=== PATIENT | female | born 1960 | race Caucasian/White ===

== ENCOUNTER → 2017-11-02 13:00 | Outpatient (CLI) | payer OTHER, SELFPAY | PROVIDERS: Family Provider Family Medicine; PCP Family Medicine | DX: Z23 Encounter for immunization (principal) | CPT/HCPCS: 90471; 90686 ==

== ENCOUNTER → 2018-03-19 11:41 | Outpatient (CLI) | payer OTHER, SELFPAY ==
--- NOTE | 2018-03-19 | DI.MG.S_ITS ---
BILATERAL DIGITAL SCREENING MAMMOGRAM 3D/2D WITH CAD: 03/19/2018 CLINICAL: Routine screening. Family history of breast cancer. Comparison is made to exams dated: 06/05/2017 mammogram, 11/28/2016 mammogram, 11/21/2016 mammogram, and 11/16/2015 mammogram - [facility]. The tissue of both breasts is heterogeneously dense. This may lower the sensitivity of mammography. Current study was also evaluated with a Computer Aided Detection (CAD) system. No significant masses, calcifications, or other findings are seen in either breast. There has been no significant interval change. IMPRESSION: NEGATIVE There is no mammographic evidence of malignancy. A 1 year screening mammogram is recommended. This exam was interpreted at Station ID: [id number]. NOTE: For mammograms, a report in lay terms will be sent to the patient. Approximately 15% of breast malignancies will not be visualized mammographically. In the management of a palpable breast mass, a negative mammogram must not discourage biopsy of a clinically suspicious lesion. Electronically Signed By: Shola call/yadi:03/19/2018 13:07:26 letter sent: Normal Exam ACR BI-RADS Category 1: Negative 3341F
== END ==
PROVIDERS: Family Provider Family Medicine; PCP Family Medicine; Visit Provider Family Medicine
DX: Z12.31 Encounter for screening mammogram for malignant neoplasm of breast (principal); Z80.3 Family history of malignant neoplasm of breast
CPT/HCPCS: 77063; 77067

== ENCOUNTER → 2018-09-10 09:57 | Outpatient (CLI) | payer OTHER, SELFPAY ==
[2018-09-10 10:48] LABS: Add Manual Diff / Slide Review NO; Basophils Absolute Auto 100 /uL (0-100); Basophils Percent Auto 1.3 % (0-2); Eosinophils Absolute Auto 200 /uL (0-450); Eosinophils Percent Auto 3.2 % (2-4); Hematocrit 39.4 % (36-46); Hemoglobin 13.3 g/dL (12.0-16.0); Lymphocytes Absolute Auto 1800 /uL (1100-4500); Lymphocytes Percent Auto 34.9 % (25-40); Mean Corpuscular HGB Conc 33.8 % (30-36); Mean Corpuscular Hemoglobin 32.3 PG (26-34); Mean Corpuscular Volume 95.6 fL (80-100); Monocytes Absolute Auto 400 /uL (0-900); Monocytes Percent Auto 8.1 % (3-14); Neutrophils Absolute Auto 2700 /uL (1500-7000); Neutrophils Percent Auto 52.5 % (50-75); Platelet Count 303 X10^3/uL (150-400); Red Blood Cell Count 4.12 X10^6/uL (4.0-5.2); Red Cell Distribution Width 14.3 % (11.6-14.8); White Blood Cell Count 5.2 X10^3/uL (4.5-11.0)
[2018-09-10 11:46] LABS: Alanine Aminotransferase 20 IU/L (9-52); Albumin 4.5 g/dL (3.5-5.0); Albumin Globulin Ratio 1.7 (1.0-2.8); Alkaline Phosphatase 91 U/L (38-126); Aspartate Aminotransferase 40 IU/L (14-36); BUN Creatinine Ratio 18.6 (6-22); Bilirubin Total 0.6 mg/dL (0.2-1.3); Blood Urea Nitrogen 13 mg/dL (7-17); Calcium 9.8 mg/dL (8.4-10.2); Carbon Dioxide 30 mmol/L (22-32); Chloride 104 mmol/L (98-107); Cholesterol 216 mg/dL (140-199); Estimated Glomerular Filt Rate > 60.0 mL/min (>60); Globulin 2.7 g/dL (1.7-4.1); Glucose 89 mg/dL (70-100); HDL Cholesterol 79 mg/dL (40-60); HEMOLYSIS < 15 (0-50); Potassium 4.5 mmol/L (3.4-5.1); Sodium 142 mmol/L (137-145); Total Protein 7.2 g/dL (6.3-8.2)
[2018-09-10 11:47] LABS: LDL Cholesterol Calculated 120 mg/dL (<100); Triglycerides 85 mg/dL (35-150)
[2018-09-10 12:11] LABS: TSH w/ Reflex to FT4 1.92 uIU/mL (0.47-4.68)
== END ==
PROVIDERS: PCP Family Medicine; Visit Provider Family Medicine
DX: R53.83 Other fatigue (principal); E78.5 Hyperlipidemia, unspecified
CPT/HCPCS: 36415; 80053; 80061; 84443; 85025

== ENCOUNTER → 2018-11-12 11:02 | Outpatient (CLI) | payer OTHER, SELFPAY | PROVIDERS: PCP Family Medicine | DX: Z23 Encounter for immunization (principal) | CPT/HCPCS: 90471; 90686 ==

== ENCOUNTER → 2019-04-08 16:15 | Outpatient (CLI) | payer OTHER, SELFPAY ==
--- NOTE | 2019-04-08 | DI.MG.S_ITS ---
BILATERAL DIGITAL SCREENING MAMMOGRAM 3D/2D WITH CAD: 04/08/2019 CLINICAL: Routine screening. Family history of breast cancer. Comparison is made to exams dated: 03/19/2018 mammogram, 11/21/2016 mammogram, and 11/16/2015 mammogram - [facility]. The tissue of both breasts is heterogeneously dense. This may lower the sensitivity of mammography. Current study was also evaluated with a Computer Aided Detection (CAD) system. No significant masses, calcifications, or other findings are seen in either breast. There has been no significant interval change. IMPRESSION: NEGATIVE There is no mammographic evidence of malignancy. A 1 year screening mammogram is recommended. This exam was interpreted at Station ID: [id number]. NOTE: For mammograms, a report in lay terms will be sent to the patient. Approximately 15% of breast malignancies will not be visualized mammographically. In the management of a palpable breast mass, a negative mammogram must not discourage biopsy of a clinically suspicious lesion. Electronically Signed By: Lesli rivero/yadi:04/09/2019 08:52:07 letter sent: Normal Exam ACR BI-RADS Category 1: Negative 3341F
== END ==
PROVIDERS: PCP Family Medicine; Referring Provider Family Medicine; Visit Provider Family Medicine
DX: Z12.31 Encounter for screening mammogram for malignant neoplasm of breast (principal); Z80.3 Family history of malignant neoplasm of breast
CPT/HCPCS: 77063; 77067

== ENCOUNTER → 2019-09-11 12:48 | Outpatient (CLI) | payer OTHER, SELFPAY ==
--- NOTE | 2019-09-11 | DI.RAD.S_ITS ---
PROCEDURE: XR LUMBAR SPINE 2-3V INDICATIONS: LOW BACK AND HIP PAIN TECHNIQUE: 2 views of the lumbar spine were acquired. COMPARISON: None. FINDINGS: Bones: No fracture or focal osseous destruction. Mild dextrocurvature. Multilevel degenerative endplate sclerosis and spurring. Diffuse facet arthropathy. Diffuse mild narrowing of the lumbar disc spaces. Soft tissues: Overlying bowel gas pattern is normal. No suspicious soft tissue calcifications. IMPRESSION: Mild diffuse spondylosis and facet arthropathy. Mild dextrocurvature Dictated by: Yannick Dwyer M.D. on 09/11/2019 at 13:50 Approved by: Yannick Dwyer M.D. on 09/11/2019 at 13:59
== END ==
PROVIDERS: PCP Family Medicine; Referring Provider Chiropractor; Visit Provider Chiropractor
DX: M54.5 Low back pain (principal); M47.816 Spondylosis without myelopathy or radiculopathy, lumbar region; M25.559 Pain in unspecified hip
CPT/HCPCS: 72100

== ENCOUNTER → 2019-10-14 11:44 | Outpatient (CLI) | payer OTHER, SELFPAY ==
[2019-10-15 09:57] LABS: COVID19 Sendout Not Detected (Not Detect)
== END ==
PROVIDERS: PCP Family Medicine; Visit Provider Nurse Practitioner
DX: Z20.828 Contact with and (suspected) exposure to other viral communicable diseases (principal)
CPT/HCPCS: 87635

== ENCOUNTER → 2019-11-14 | Outpatient (CLI) | payer OTHER, SELFPAY | PROVIDERS: PCP Family Medicine; Referring Provider Internal Medicine; Visit Provider Internal Medicine | DX: Z23 Encounter for immunization (principal) | CPT/HCPCS: 90471; 90686 ==

== ENCOUNTER → 2019-11-22 13:29 | Outpatient (CLI) | payer OTHER, SELFPAY ==
[2019-11-24 07:55] LABS: COVID19 Sendout Not Detected (Not Detect)
== END ==
PROVIDERS: PCP Family Medicine; Visit Provider Physician Assistant
DX: Z01.812 Encounter for preprocedural laboratory examination (principal)
CPT/HCPCS: 87635

== ENCOUNTER 2019-11-25 06:32 | Day surgery (SDC) | payer OTHER, SELFPAY ==
[2019-11-25 07:01] VITALS: BP 117/73; PULSE 74; RESP 16; TEMP 36.7; O2SAT 100; BMI 24.4
[2019-11-25] MEDS: LACTATED RINGERS 1,000 ML 42 ML IV (07:14)
--- NOTE | 2019-11-25 07:55 | PM.HP.1 ---
History of Present Illness History of Present Illness Date Patient Seen: 11/25/19 Time Patient Seen: 07:55 Chief complaint: SCREENING COLONOSCOPY Narrative: The patient is a woman here for a screening colonoscopy. Last exam 10 years ago. No family history of polyps or colon cancer. No personal history of polyps Patient History Surgical History Status post hysteroscopy (03/29/07) Status post rotator cuff repair (05/29/12) Family & Social History Family History Brother Age: 54 Obesity CAD (coronary artery disease) Brother Age: 62 History of stroke Obesity Father Age: 88 Atrial fibrillation, unspecified type Grandfather Heart disease Mother Age: 86 Alzheimers disease Sister Age: 64 Malignant neoplasm of female breast, unspecified laterality, unspecified site of breast Social History: household members spouse Tobacco & Substance use: Smoking Status Never smoker alcohol intake current alcohol intake frequency a few times a month Substance Use Type does not use Meds Home Medications and Allergies Home Medications Medication Instructions Recorded Confirmed Type estradiol 1 vaginalrin VAG [id number] #1 each 10/28/18 11/25/19 Rx CMP Progesterone 100mg/mL Cream See Rx Instructions .ROUTE 09/05/19 11/25/19 Rx .COMPLEX #3 ml Allergies Allergy/AdvReac Type Severity Reaction Status Date / Time No Known Drug Allergies Allergy Verified 11/25/19 06:59 Review of Systems Review of Systems ROS: Yes All systems reviewed with the patient and are negative except as otherwise documented Exam Vital Signs (past 8 hours): - 11/25/19 07:01 Temperature 98.1 F Pulse Rate 74 Respiratory Rate 16 Blood Pressure 117/73 Pulse Oximetry 100 Oxygen Delivery Method Room Air Oxygen Flow Rate 0 Narrative Exam Narrative: Pleasant cooperative patient no apparent distress. Lungs are clear to auscultation. No rales or rhonchi. Heart regular rate and rhythm no murmur gallop. Abdomen is soft nontender without mass. No obvious hernias. Patient is alert and oriented x3. Assessment & Plan Assessment & Plan narrative: The patient for a screening colonoscopy. I have discussed the procedure with them. Risks of bleeding, perforation which would necessitate major operation, failure to find remove all lesions, the potential tattoo were all discussed. All questions were answered. They wished to proceed.
--- NOTE | 2019-11-25 07:57 | PM.PREOP ---
Pre-operative Note COVID-19 COVID-19 status: Negative Result date/Date tested (Pos, Neg/Pending): 11/22/19 Interval Note History & Physical reviewed/Exam performed by Physician: Yes Changes to H&P: No ASA Class (for procedural sedation): I
[2019-11-25] MEDS: fentaNYL 250 MCG/5 ML INJ IV (08:14)
[2019-11-25] MEDS: MIDAZOLAM 5 MG/5 ML VIAL IV (08:14)
--- NOTE | 2019-11-25 08:28 | PM.OP.ENDO ---
Operative Date/Time/Diagnoses Date of procedure: 11/25/19 Time of procedure: 08:29 Pre-op diagnosis: Screening exam. Last exam 10 years ago. Post-op diagnosis: same Procedure & Clinicians Study performed: Colonoscopy Same procedure as scheduled: Yes Indications: Screening Surgeon: Saul Doyle Procedure Notes SCOAP/Timeout: Perform Procedure in detail: The patient was placed in the left lateral decubitus position and underwent IV sedation directed by the surgeon consisting of fentanyl and Versed. Digital exam was remarkable for large external hemorrhoid tags. The scope was inserted and advanced through the rectum into the sigmoid, descending, transverse, and ascending colon. No lesions were seen. Was quite a bit of tortuosity and I had to apply pressure and inserted a stiffener in order to reach the cecum. The cecum was reached identified by the ileocecal valve and the appendiceal opening. The ileocecal valve was successfully cannulated. The terminal ileum was normal in appearance. The scope was gradually brought out. No Polyps were found. The scope ultimately was retroflexed in the rectum. The appearance was remarkable for scarring on hemorrhoids but no active disease.. The scope was removed and the patient tolerated the procedure well. The prep was very good. Scope withdrawal time: 6 minutes Sedation minutes: 25 Specimen(s): none sent Complications: none Post-procedure Recommendations: Colonscopy in 10 years Follow up: as needed Disposition: PACU
[2019-11-25 08:30] VITALS: BP 101/60; PULSE 59; RESP 12; TEMP 36.9; O2SAT 96
[2019-11-25 08:35] VITALS: BP 95/61; PULSE 60; RESP 14; O2SAT 96
[2019-11-25 08:40] VITALS: BP 98/61; PULSE 59; RESP 14; O2SAT 97
--- NOTE | 2019-11-25 08:43 | SUR.PHASEI ---
pt arrived laying on left side. No distress noted. no complaints voiced.
[2019-11-25 08:48] VITALS: BP 102/66; PULSE 82; RESP 12; TEMP 36.3; O2SAT 99
[2019-11-25 08:58] VITALS: BP 101/70; PULSE 62; RESP 16; TEMP 36.6; O2SAT 99
--- NOTE | 2019-11-25 09:17 | SUR.PHASEII ---
0900-Pt wanting to go home, up and ambulating gait steady. iv dcd site clear and pt getting dressed now at bs.
--- NOTE | 2019-11-25 09:17 | SUR.PHASEII ---
0910-Pt dcd via wc in stable condition after all dcinstructions given.
== END 2019-11-25 09:10 | disposition home or self-care (01) ==
PROVIDERS: PCP Family Medicine; Referring Provider Family Medicine; Visit Provider Specialist
PROC: 0DJD8ZZ Inspection of Lower Intestinal Tract, Via Natural or Artificial Opening Endoscopic (ICD-10-PCS; CPT 45378; principal; 2019-11-25 07:45)
DX: Z12.11 Encounter for screening for malignant neoplasm of colon (principal)
CPT/HCPCS: 45378; 99152; J2250; J3010

== ENCOUNTER → 2020-02-18 12:47 | Outpatient (CLI) | payer OTHER, SELFPAY ==
[2020-02-18] MEDS: COVID-19 VACC(MODERNA-1)/PF 100 MCG/0.5 ML VIAL IM (12:51)
== END ==
PROVIDERS: PCP Family Medicine; Visit Provider Internal Medicine
DX: Z23 Encounter for immunization (principal)
CPT/HCPCS: 0011A; 91301

== ENCOUNTER → 2020-03-16 12:45 | Outpatient (CLI) | payer OTHER, SELFPAY ==
[2020-03-16] MEDS: COVID-19 VACC #2, MRNA(MOD) 100 MCG/0.5 ML VIAL IM (12:50)
== END ==
PROVIDERS: PCP Family Medicine; Visit Provider Internal Medicine
DX: Z23 Encounter for immunization (principal)
CPT/HCPCS: 0012A; 91301

== ENCOUNTER → 2020-05-24 08:05 | Outpatient (CLI) | payer OTHER, SELFPAY ==
--- NOTE | 2020-05-24 | DI.MG.S_ITS ---
BILATERAL DIGITAL SCREENING MAMMOGRAM 3D/2D WITH CAD: 05/24/2020 CLINICAL: Routine screening. Family history of breast cancer. Comparison is made to exams dated: 04/08/2019 mammogram, 03/19/2018 mammogram, and 11/21/2016 mammogram - [facility]. There are scattered fibroglandular elements in both breasts. Current study was also evaluated with a Computer Aided Detection (CAD) system. No significant masses, calcifications, or other findings are seen in either breast. There has been no significant interval change. IMPRESSION: NEGATIVE There is no mammographic evidence of malignancy. A 1 year screening mammogram is recommended. This exam was interpreted at Station ID: [id number]. NOTE: For mammograms, a report in lay terms will be sent to the patient. Approximately 15% of breast malignancies will not be visualized mammographically. In the management of a palpable breast mass, a negative mammogram must not discourage biopsy of a clinically suspicious lesion. Electronically Signed By: Raina gerardo/yadi:05/24/2020 10:04:57 letter sent: Normal Exam ACR BI-RADS Category 1: Negative 3341F
== END ==
PROVIDERS: PCP Family Medicine; Referring Provider Family Medicine; Visit Provider Family Medicine
DX: Z12.31 Encounter for screening mammogram for malignant neoplasm of breast (principal); Z80.3 Family history of malignant neoplasm of breast
CPT/HCPCS: 77063; 77067

== ENCOUNTER → 2020-09-23 06:59 | Outpatient (CLI) | payer OTHER, SELFPAY ==
[2020-09-23 07:57] LABS: Add Manual Diff / Slide Review NO; Basophils Absolute Auto 0 /uL (0-100); Basophils Percent Auto 0.6 % (0-2); Eosinophils Absolute Auto 200 /uL (0-450); Eosinophils Percent Auto 2.7 % (2-4); Hematocrit 37.8 % (36-46); Hemoglobin 12.4 g/dL (12.0-16.0); Lymphocytes Absolute Auto 1200 /uL (1100-4500); Lymphocytes Percent Auto 17.4 % (25-40); Mean Corpuscular HGB Conc 32.9 % (30-36); Mean Corpuscular Hemoglobin 31.8 PG (26-34); Mean Corpuscular Volume 96.6 fL (80-100); Monocytes Absolute Auto 500 /uL (0-900); Monocytes Percent Auto 7.2 % (3-14); Neutrophils Absolute Auto 5000 /uL (1500-7000); Neutrophils Percent Auto 72.1 % (50-75); Platelet Count 275 X10^3/uL (150-400); Red Blood Cell Count 3.91 X10^6/uL (4.0-5.2); Red Cell Distribution Width 13.7 % (11.6-14.8); White Blood Cell Count 6.9 X10^3/uL (4.5-11.0)
[2020-09-23 08:09] LABS: Alanine Aminotransferase 16 IU/L (<35); Albumin 4.1 g/dL (3.5-5.0); Albumin Globulin Ratio 1.6 (1.0-2.8); Alkaline Phosphatase 75 U/L (38-126); Aspartate Aminotransferase 36 IU/L (14-36); BUN Creatinine Ratio 20.5 (6-22); Bilirubin Total 0.4 mg/dL (0.2-1.3); Blood Urea Nitrogen 16 mg/dL (7-17); Calcium 9.6 mg/dL (8.4-10.2); Carbon Dioxide 29 mmol/L (22-32); Chloride 106 mmol/L (98-107); Cholesterol 226 mg/dL (140-199); Estimated Glomerular Filt Rate > 60.0 mL/min (>60); Globulin 2.5 g/dL (1.7-4.1); Glucose 86 mg/dL (80-110); HDL Cholesterol 67 mg/dL (40-60); HEMOLYSIS < 15 (0-50); LDL Cholesterol Calculated 141 mg/dL (<100); Potassium 4.2 mmol/L (3.4-5.1); Sodium 138 mmol/L (137-145); Total Protein 6.6 g/dL (6.3-8.2); Triglycerides 89 mg/dL (35-150)
[2020-09-23 08:24] LABS: Vitamin D 25 Hydroxy (D3) 34.7 ng/mL (30.0-100.0)
[2020-09-23 08:45] LABS: TSH w/ Reflex to FT4 2.41 uIU/mL (0.47-4.68)
[2020-09-23 11:24] LABS: HIV 1 & 2 Ab/Ag 4th Gen Combo NEGATIVE (NEGATIVE); Hep C Virus Ab w/Reflex Quant NEGATIVE s/c (NEGATIVE)
== END ==
PROVIDERS: PCP Family Medicine; Referring Provider Family Medicine; Visit Provider Family Medicine
DX: E78.5 Hyperlipidemia, unspecified (principal); L65.9 Nonscarring hair loss, unspecified; R53.83 Other fatigue; Z13.1 Encounter for screening for diabetes mellitus; Z78.0 Asymptomatic menopausal state
CPT/HCPCS: 36415; 80053; 80061; 82306; 84443; 85025; 86803; 87389

== ENCOUNTER → 2020-12-02 19:38 | Outpatient (CLI) | payer OTHER, SELFPAY | PROVIDERS: PCP Family Medicine; Referring Provider Internal Medicine; Visit Provider Internal Medicine | DX: Z23 Encounter for immunization (principal) | CPT/HCPCS: 90471; 90686 ==

== ENCOUNTER → 2020-12-31 11:48 | Outpatient (CLI) | payer OTHER, SELFPAY ==
[2020-12-31] MEDS: COVID-19 VACC #3, MRNA(MOD) 50 MCG/0.25 ML VIAL IM (11:51)
== END ==
PROVIDERS: PCP Family Medicine; Visit Provider Internal Medicine
DX: Z23 Encounter for immunization (principal)
CPT/HCPCS: 0013A; 91301

== ENCOUNTER 2021-01-14 12:13 | Emergency (ER) | payer OTHER, SELFPAY ==
[2021-01-14 12:45] VITALS: BP 135/74; PULSE 73; RESP 18; TEMP 37.1; O2SAT 99
--- NOTE | 2021-01-14 12:47 | ED.GENADULT ---
HPI - General Adult <Karl Holman PA-C - Last Filed: 01/14/21 20:04> General Chief complaint: Skin/Abscess/Foreign Body Stated complaint: Stabbed Lt Pointer Finger With Needle Time Seen by Provider: 01/14/21 12:42 History of Present Illness HPI narrative: Patient is a 60-year-old female presenting emergency department today for an evaluation a needlestick to her left 2nd finger. Patient states that she was assisting in his surgery today at approximately 12:15 p.m. when the injury occurred. Patient states that she does not know the specific medical history of the patient that she was operating on. She denies symptoms associated with the injury, including fever, chills, chest pain, shortness of breath, nausea, vomiting, diarrhea, abdominal pain, dysuria, or numbness and tingling in the bilateral upper extremities. No other concerns voiced at this time. Patient is unsure if nurse manager clinical applications has been notified of the exposure. Related Data Previous Rx's Medication Instructions Recorded CMP Progesterone 100mg/mL Cream See Rx Instructions .ROUTE 10/27/20 .COMPLEX #3 ml CMP Biest Cream 0.125& 0.8 ml .ROUTE DAILY #1 tube 11/23/20 Allergies Allergy/AdvReac Type Severity Reaction Status Date / Time No Known Drug Allergies Allergy Verified 01/14/21 12:51 Review of Systems <Karl Holman PA-C - Last Filed: 01/14/21 20:04> Constitutional Constitutional: Denies chills, Denies fatigue, Denies fever(s), Denies frequent falls, Denies lethargy and Denies weakness Eyes Eyes: Denies loss of vision ENT Ears, Nose, Mouth, and Throat: Denies dizziness Cardiovascular Cardiovascular: Denies chest pain, Denies irregular heart rhythm, Denies lightheadedness, Denies palpitations, Denies dyspnea, Denies dyspnea on exertion and Denies orthopnea Respiratory Respiratory: Denies cough, Denies dyspnea, Denies dyspnea on exertion and Denies wheezing Gastrointestinal Gastrointestinal: Denies abdominal pain, Denies change in bowel habits, Denies diarrhea, Denies nausea and Denies vomiting Genitourinary Genitourinary: Denies hematuria, Denies flank pain, Denies urinary incontinence and Denies urinary urgency Musculoskeletal Musculoskeletal: Denies numbness and Denies tingling Integumentary/Breasts Skin/Breast: Denies pruritus, Denies erythema, Denies rash and Reports wounds (Needle puncture wound to left 2nd finger) Neurologic Neurologic: Denies behavioral changes, Denies confusion, Denies dizziness, Denies frequent falls, Denies loss of vision, Denies numbness, Denies tingling and Denies weakness Psychiatric Psychiatric: Denies behavioral changes and Denies confusion Endocrine Endocrine: Denies fatigue and Denies palpitations Allergic/Immunologic Allergic/Immunologic: Denies wheezing Patient History <Karl Holman PA-C - Last Filed: 01/14/21 20:04> Surgical History Status post hysteroscopy (03/29/07) Status post rotator cuff repair (05/29/12) Family History Brother Age: 55 Obesity CAD (coronary artery disease) Brother Age: 63 History of stroke Obesity Father Age: 89 Atrial fibrillation, unspecified type Grandfather Heart disease Mother Age: 87 Alzheimers disease Sister Age: 65 Malignant neoplasm of female breast, unspecified laterality, unspecified site of breast Social History household members: spouse Smoking Status: Never smoker alcohol intake: current Smoking Status: Never smoker alcohol intake frequency: a few times a month Substance Use Type: does not use Exam <Karl Holman PA-C - Last Filed: 01/14/21 20:04> Narrative Exam Narrative: GENERAL: 60 year old patient appears stated age. Well-developed patient, in no acute distress. HEAD: Atraumatic. Normocephalic. EYES: Pupils equal round and reactive. Extraocular motions intact. No scleral icterus. No injection or drainage. ENT: Nose without bleeding, purulent drainage. Throat without erythema, tonsillar hypertrophy or exudate. Airway patent. NECK: Trachea midline. Non tender CARDIOVASCULAR: Regular rate and rhythm without murmurs, gallops, or rubs. RESPIRATORY: Clear to auscultation. Breath sounds equal bilaterally. No wheezes, rales, or rhonchi. GASTROINTESTINAL: Abdomen soft, non-tender, nondistended. EXTREMITIES: No edema or joint tenderness. BACK: Nontender without deformity or crepitance. No flank tenderness. NEURO: AOx3. SKIN: No rash or erythema of visible areas. Small puncture wound noted at the finger pad the left 2nd finger. No surrounding erythema, swelling, warmth, or induration. Initial Vital Signs Initial Vital Signs: Vital Signs Temperature 98.8 F 01/14/21 12:45 Pulse Rate 73 01/14/21 12:45 Respiratory Rate 18 01/14/21 12:45 Blood Pressure 135/74 01/14/21 12:45 Pulse Oximetry 99 01/14/21 12:45 <Adele Morris DO - Last Filed: 01/15/21 07:06> Initial Vital Signs Initial Vital Signs: Vital Signs Temperature 98.8 F 01/14/21 12:45 Pulse Rate 73 01/14/21 12:45 Respiratory Rate 18 01/14/21 12:45 Blood Pressure 135/74 01/14/21 12:45 Pulse Oximetry 99 01/14/21 12:45 Course <Karl Holman PA-C - Last Filed: 01/14/21 20:04> Course Course Narrative: Exposure panel ordered. Vital Signs Vital signs: Vital Signs - 8 hr 01/14/21 12:45 Temperature 98.8 F Pulse Rate 73 Respiratory Rate 18 Blood Pressure 135/74 Pulse Oximetry 99 <Adele Morris DO - Last Filed: 01/15/21 07:06> Vital Signs Vital signs: Vital Signs - 8 hr 01/14/21 12:45 Temperature 98.8 F Pulse Rate 73 Respiratory Rate 18 Blood Pressure 135/74 Pulse Oximetry 99 Medical Decision Making <Karl Holman PA-C - Last Filed: 01/14/21 20:04> Lab Data Labs: Lab Results 01/14/21 01/14/21 Range/Units 12:52 12:52 ALT 18 (<35) IU/L Hep Bs Antigen Negative (NEGATIVE) s/c Hepatitis C Antibody Negative (NEGATIVE) s/c HIV 1&2 Ab/P24 Ag 4thGn Negative (NEGATIVE) MDM Narrative Medical decision making narrative: To consider blood borne illness versus puncture wound. Overall physical examination and history are reassuring. Discussed with patient the plan to notify nurse manager clinical applications of the incident and inform the patient that she will be informed of the results of the exposure panel once that have resulted. Patient understands plan and feels comfortable being discharged. Strict return precautions discussed prior to discharge. <Adele Morris DO - Last Filed: 01/15/21 07:06> Lab Data Labs: Lab Results 01/14/21 01/14/21 Range/Units 12:52 12:52 ALT 18 (<35) IU/L Hep Bs Antigen Negative (NEGATIVE) s/c Hepatitis C Antibody Negative (NEGATIVE) s/c HIV 1&2 Ab/P24 Ag 4thGn Negative (NEGATIVE) Discharge Plan Departure Patient Disposition: Home Clinical Impression: Puncture wound, Exposure to body fluid Activity Restrictions/Additional Instructions: *You have been diagnosed with left finger puncture wound *What to do: *Please continue to take your regular medications as directed. [ ] New medication prescriptions sent to your pharmacy: [ ] [ ] New medication written as a paper prescription [X] No new medications given *Please follow up with your primary care provider in 2-3 days, call for an appointment. Let them know you were seen in the Emergency Department and that we ask that you be seen in follow up. We will electronically transmit a record of today's note if your PCP is in our system *If you do not have a primary care provider please contact the [facility] Resource line at [phone]. They will ask some questions about your medical history and help get you set up with a doctor in the community. *Return to Emergency Department if you should have any new, worsening or concerning symptoms, such as fever greater than 101 F, shaking chills, worsening pain, persistent vomiting or other bothersome symptoms. Prescriptions: No Action CMP Progesterone 100mg/mL Cream See Rx Instructions .ROUTE .COMPLEX Qty: 3 11RF Rx Instructions: Apply 0.2mL once daily at bedtime to rotating sites. 3mL syringe/purple tip CMP Biest Cream 0.125& 0.8 ml .Route DAILY Qty: 1 3RF Rx Instructions: 0.8 mL daily; pply 0.8mL once Daily Referrals: Nancy Marsh DO [Primary Care Provider] - <Adele Morris DO - Last Filed: 01/15/21 07:06> Cosign ED Attending Reginoature Attestation: I was immediately available in the department for consultation. Documentation has been reviewed. I agree with assessment and plan.
[2021-01-14 13:14] LABS: Alanine Aminotransferase 18 IU/L (<35)
[2021-01-14 14:05] LABS: Hepatitis B Surface Antigen NEGATIVE s/c (NEGATIVE)
[2021-01-14 14:25] LABS: HIV 1 & 2 Ab/Ag 4th Gen Combo NEGATIVE (NEGATIVE); Hep C Virus Ab w/Reflex Quant NEGATIVE s/c (NEGATIVE)
[2021-01-15 07:14] LABS: Hepatitis B Surf Ab Qualitativ Reactive (.)
== END 2021-01-14 13:02 | disposition home or self-care (01) ==
PROVIDERS: Emergency Medicine; Emergency Provider Physician Assistant; PCP Family Medicine
DX: S61.231A Puncture wound without foreign body of left index finger without damage to nail, initial encounter (principal); Z77.21 Contact with and (suspected) exposure to potentially hazardous body fluids; W46.1XXA Contact with contaminated hypodermic needle, initial encounter; Y92.234 Operating room of hospital as the place of occurrence of the external cause; Y99.0 Civilian activity done for income or pay
CPT/HCPCS: 36415; 99281; 99283

== ENCOUNTER → 2021-06-07 14:55 | Outpatient (CLI) | payer OTHER, SELFPAY ==
--- NOTE | 2021-06-07 14:56 | DI.MG.S_ITS ---
BILATERAL DIGITAL SCREENING MAMMOGRAM 3D/2D WITH CAD: 06/07/2021 CLINICAL: Routine screening. Family history of breast cancer. Comparison is made to exams dated: 05/24/2020 mammogram, 04/08/2019 mammogram, and 03/19/2018 mammogram - [facility]. There are scattered fibroglandular elements in both breasts. Current study was also evaluated with a Computer Aided Detection (CAD) system. No significant masses, calcifications, or other findings are seen in either breast. There has been no significant interval change. IMPRESSION: NEGATIVE There is no mammographic evidence of malignancy. A 1 year screening mammogram is recommended. This exam was interpreted at Station ID: [id number]. NOTE: For mammograms, a report in lay terms will be sent to the patient. Approximately 15% of breast malignancies will not be visualized mammographically. In the management of a palpable breast mass, a negative mammogram must not discourage biopsy of a clinically suspicious lesion. Electronically Signed By: Lesli rivero/yadi:06/07/2021 17:22:29 letter sent: Normal Exam ACR BI-RADS Category 1: Negative 3341F
== END ==
PROVIDERS: PCP Obstetrics & Gynecology; Referring Provider Obstetrics & Gynecology; Visit Provider Obstetrics & Gynecology
DX: Z12.31 Encounter for screening mammogram for malignant neoplasm of breast (principal); Z80.3 Family history of malignant neoplasm of breast
CPT/HCPCS: 77063; 77067

== ENCOUNTER → 2022-06-20 15:00 | Outpatient (CLI) | payer OTHER, SELFPAY ==
--- NOTE | 2022-06-20 15:03 | DI.MG.S_ITS ---
BILATERAL DIGITAL SCREENING MAMMOGRAM 3D/2D WITH CAD: 06/20/2022 CLINICAL: Routine screening. Family history of breast cancer. Comparison is made to exams dated: 06/07/2021 mammogram, 05/24/2020 mammogram, 04/08/2019 mammogram, and 03/19/2018 mammogram - [facility]. There are scattered areas of fibroglandular density in both breasts (category b / 25%-50% glandular tissue). Current study was also evaluated with a Computer Aided Detection (CAD) system. No significant masses, calcifications, or other findings are seen in either breast. There has been no significant interval change. IMPRESSION: NEGATIVE There is no mammographic evidence of malignancy. A 1 year screening mammogram is recommended. Based on the Tyrer Cuzick model (a risk assessment model) the patient's lifetime risk is 19.0% and her 10 year risk is 8.5%. According to the ACR, ACS, and NCCN guidelines, an annual breast MRI exam along with mammogram is recommended if the patient's lifetime risk is 20% or greater. This exam was interpreted at Station ID: [id number]. NOTE: For mammograms, a report in lay terms will be sent to the patient. Approximately 15% of breast malignancies will not be visualized mammographically. In the management of a palpable breast mass, a negative mammogram must not discourage biopsy of a clinically suspicious lesion. Electronically Signed By: Reed esparza/yadi:06/20/2022 15:33:00 letter sent: Normal Exam ACR BI-RADS Category 1: Negative 3341F
== END ==
PROVIDERS: Referring Provider Obstetrics & Gynecology; Visit Provider Obstetrics & Gynecology
DX: Z12.31 Encounter for screening mammogram for malignant neoplasm of breast (principal); Z80.3 Family history of malignant neoplasm of breast
CPT/HCPCS: 77063; 77067

== ENCOUNTER → 2022-11-16 15:50 | Outpatient (CLI) | payer OTHER, SELFPAY | PROVIDERS: Referring Provider Family Medicine; Visit Provider Family Medicine | DX: Z23 Encounter for immunization (principal) | CPT/HCPCS: 90471; 90686 ==

== ENCOUNTER → 2023-09-04 16:34 | Outpatient (CLI) | payer OTHER, SELFPAY ==
--- NOTE | 2023-09-04 16:35 | DI.MG.S_ITS ---
BILATERAL DIGITAL SCREENING MAMMOGRAM 3D/2D WITH CAD: 09/04/2023 CLINICAL: Routine screening. Family history of breast cancer. Comparison is made to exams dated: 06/20/2022 mammogram, 06/07/2021 mammogram, and 05/24/2020 mammogram - [facility]. There are scattered areas of fibroglandular density in both breasts (category b / 25%-50% glandular tissue). Current study was also evaluated with a Computer Aided Detection (CAD) system. No significant masses, calcifications, or other findings are seen in either breast. There has been no significant interval change. IMPRESSION: NEGATIVE There is no mammographic evidence of malignancy. A 1 year screening mammogram is recommended. Based on the Tyrer Cuzick model (a risk assessment model) the patient's lifetime risk is 18.5% and her 10 year risk is 8.5%. According to the ACR, ACS, and NCCN guidelines, an annual breast MRI exam along with mammogram is recommended if the patient's lifetime risk is 20% or greater. This exam was interpreted at Station ID: [id number]. NOTE: For mammograms, a report in lay terms will be sent to the patient. Approximately 15% of breast malignancies will not be visualized mammographically. In the management of a palpable breast mass, a negative mammogram must not discourage biopsy of a clinically suspicious lesion. Electronically Signed By: Gael powell/yadi:09/05/2023 11:39:54 letter sent: Normal Exam ACR BI-RADS Category 1: Negative 3341F
== END ==
PROVIDERS: PCP Obstetrics & Gynecology; Referring Provider Obstetrics & Gynecology; Visit Provider Obstetrics & Gynecology
DX: Z12.31 Encounter for screening mammogram for malignant neoplasm of breast (principal); Z80.3 Family history of malignant neoplasm of breast; R92.323 Mammographic fibroglandular density, bilateral breasts
CPT/HCPCS: 77063; 77067

== ENCOUNTER → 2023-11-27 14:00 | Outpatient (CLI) | payer OTHER, SELFPAY ==
--- NOTE | 2023-11-27 14:01 | DI.RAD.S_ITS ---
PROCEDURE: XR CERVICAL SPINE 4V OR 5V INDICATIONS: Cervicalgia TECHNIQUE: Five views of the cervical spine were acquired. COMPARISON: None. FINDINGS: Cervical spine curvature and alignment: Normal. Bones: There are no osseous abnormalities. Disc spaces: Mild C3-4 moderate C5-6 and C6-7 degenerative disc disease appreciated. There is mild bilateral C5-6 and C6-7 IV foraminal narrowing due to degenerative spurs Soft tissues: No soft tissue swelling, calcification or mass. IMPRESSION: Degeneration Dictated by: Yahir Godoy M.D. on 11/28/2023 at 10:31 Approved by: Yahir Godoy M.D. on 11/28/2023 at 10:32
== END ==
PROVIDERS: PCP Obstetrics & Gynecology; Referring Provider Chiropractor; Visit Provider Chiropractor
DX: M50.31 Other cervical disc degeneration, high cervical region (principal); M48.02 Spinal stenosis, cervical region
CPT/HCPCS: 72050